=== PATIENT | male | born 1930 | race Caucasian/White ===

== ENCOUNTER 2017-05-25 11:04 | Day surgery (SDC) | payer MEDICARE, OTHER ==
[~2017-05-25] VITALS: Ht 182.9 cm; Wt 67.7 kg
[2017-05-25] VITALS (7 sets, daily range): BP systolic 108–1331; BP diastolic 74–108; PULSE 83–115; TEMP 97.5
[2017-05-25 11:29] LABS: HEMATOCRIT 45.4 % (42.0-52.0); HEMOGLOBIN 14.8 g/dl (13.5-18.0); MEAN CELL VOLUME 104 fl (80.0-100.0); MEAN CORPUSCULAR HEMOGLOBIN 34 pg (27.0-31.0); MEAN CORPUSCULAR HGB CONC 33 g/dl (33.0-37.0); MEAN PLATELET VOLUME 11.1 fl (7.4-10.4); PLATELET COUNT 191 K/mm3 (130-400); RED BLOOD COUNT 4.35 M/mm3 (4.20-5.60); REDCELL DISTRIBUTION WIDTH-CV 17.2 % (11.5-14.5); WHITE BLOOD COUNT 8.1 K/mm3 (4.8-10.8)
[2017-05-25 11:31] LABS: INR 1.4 (0.8-3.0); PROTHROMBIN TIME 15.5 SECONDS (9.7-12.8)
[2017-05-25 11:40] LABS: CALCIUM 9.3 mg/dL (8.4-10.2); CREATININE, serum 0.86 mg/dL (0.66-1.25)
[2017-05-25] MEDS ORDERED: TYLENOL 325MG325 MG PO (11:42)
[2017-05-25] MEDS ORDERED: FERRO-TIME325 MG PO (11:43)
[2017-05-25] MEDS ORDERED: VITAMIN D31000 I1 PO (11:43)
[2017-05-25] MEDS ORDERED: ZOLOFT 25MG25 MG PO (11:44)
[2017-05-25] MEDS ORDERED: TOPROL XL 50MG50 MG PO (11:45)
[2017-05-25] MEDS ORDERED: ASPI325T6 PO (11:45)
== END 2017-05-25 17:56 | disposition home or self-care (01) ==
LOC: COL.CAR 11:04
PROVIDERS: Internal Medicine Cardiovascular Disease
DX: I25.10 Atherosclerotic heart disease of native coronary artery without angina pectoris (principal); I27.2 Other secondary pulmonary hypertension; J90 Pleural effusion, not elsewhere classified; I48.91 Unspecified atrial fibrillation; I10 Essential (primary) hypertension; E78.2 Mixed hyperlipidemia; I08.0 Rheumatic disorders of both mitral and aortic valves; Z87.891 Personal history of nicotine dependence; Z82.49 Family history of ischemic heart disease and other diseases of the circulatory system
CPT/HCPCS: C1760; C1769; C1894; J2250; J3010; Q9967